=== PATIENT | male | born 1960 | race Caucasian/White ===

== ENCOUNTER 2024-08-27 14:40 | Emergency (ER) | payer OTHER ==
[2024-08-27] MEDS ORDERED: Ipratropium/Albuterol 3 ML NEB ONE (15:01)
[2024-08-27] MEDS ORDERED: Aspirin Chewable 81 MG TAB ONE (15:01)
[2024-08-27] MEDS ORDERED: methylPREDNISolone Sod Succ/PF 125 MG/2 ML VIAL ONE (15:01)
[2024-08-27 15:16] LABS: Eosinophils 3 % (0-10); Hematocrit 57.5 % (42.0-52.0); Hemoglobin 17.9 g/dL (14.0-18.0); Lymphocytes 16 % (21-51); MDiff Complete? YES; Mean Corpuscular HGB CONC 31.1 g/dL (32.0-36.0); Mean Corpuscular Hemoglobin 32.5 pg (27.0-31.0); Mean Platelet Volume 8.7 fL (7.4-10.4); Monocytes 15 % (0-10); Neutrophil 65 % (42-75); Platelet Count 204 10x3/uL (130-400); RBC Distribution Width 13.2 % (11.5-14.5); Red Blood Cell (RBC) Count 5.51 mill/uL (4.70-6.10); White Blood Cell (WBC) Count 9.3 10x3/uL (4.8-10.8)
[2024-08-27 15:20] LABS: Base Excess-Venous -3.6 mmol/L (-2.0 to 3.0); Bicarbonate (HCO3v) 30.7 mmol/L (22.0-28.0); vO2 Saturation-calc 41.3 % (60.0-85.0)
[2024-08-27 15:22] LABS: CO2 Tension (PvCO2) 96.1 mmHg (42.0-51.0); Calcium, Ionized 1.12 mmol/L (1.15-1.33); Chloride 85 mmol/L (98-107); Hemoglobin - Calc 21.4 g/dL (14.0-18.0); Potassium 5.6 mmol/L (3.5-5.1); Sodium 130 mmol/L (138-145); T. Carbon Dioxide 33.6 mmol/L (22.0-28.0)
[2024-08-27 15:35] LABS: ALT (SGPT) 137 U/L (8-55); AST (SGOT) 154 U/L (5-34); Albumin 3.6 g/dL (3.4-4.8); Alkaline Phosphatase 123 U/L (40-110); Anion Gap 24 mmol/L (10-20); BUN (Urea Nitrogen) 49 mg/dL (8.4-25.7); Bilirubin, Total 0.8 mg/dL (0.2-1.2); Calc. Creatinine Clearance 0 mL/min (70-130); Calcium 9.2 mg/dL (7.8-10.44); Carbon Dioxide 26 mmol/L (23-31); Chloride 86 mmol/L (98-107); Estimated GFR 31; Globulin 3.2 g/dL (2.4-3.5); Glucose 135 mg/dL (80-115); Lipase 26 U/L (8-78); Potassium 5.6 mmol/L (3.5-5.1); Protein, Total 6.8 g/dL (5.8-8.1); Sodium 130 mmol/L (136-145)
[2024-08-27] MEDS ORDERED: Furosemide 40 MG (4 mL) VIAL ONE (15:38)
[2024-08-27] MEDS ORDERED: Sodium Bicarb 50 MEQ/50 ML Abboject 8.4% SYRINGE ONE (15:38)
[2024-08-27 15:46] LABS: Troponin I 0.957 ng/mL (< 0.028)
[2024-08-27] MEDS ORDERED: fentaNYL 50 mcg/mL 1 mL Vial ONE (15:48)
[2024-08-27] MEDS ORDERED: Etomidate 40 MG (20 mL) VIAL ONE (15:49)
[2024-08-27] MEDS ORDERED: Enoxaparin 100 MG (1 mL) SYRINGE ONE (16:10)
[2024-08-27] MEDS ORDERED: Sodium Chloride 0.9% 100 ML ONE (16:10)
[2024-08-27] MEDS ORDERED: cefTRIAXone (ROCEPHIN) 2 GM VIAL ONE (16:10)
[2024-08-27 16:19] LABS: Bilirubin Moderate (Negative); Blood, Urine Trace (Negative); Clarity Clear (Clear); Glucose, Urine (Dipstick) Negative (Negative); Ketone, Urine Trace mg/dL (Negative); Leukocyte Negative (Negative); Nitrite Negative (Negative); Protein, Urine (Dipstick) > or equal to 300 mg/dL (Neg-Trace); pH, Urine 5.5 (5.0-9.0)
[2024-08-27 16:23] LABS: CAUTI Indications for Culture Alt mental st,lethar; RBC/HPF 0-3 HPF (0-3); Specific Gravity, Urine 1.031 (1.002-1.036); Squamous Epithelial 0-3 HPF (0-3); WBC/HPF 0-3 HPF (0-3)
[2024-08-27 16:24] LABS: Bacteria/HPF None Seen HPF (None Seen); Urine Culture Reflex No No
[2024-08-27 16:28] LABS: Amphetamine Not Detected (NotDetected); Barbiturates Screen Not Detected (NotDetected); Benzodiazepine Screen Not Detected (NotDetected); Cocaine Metabolite Screen Not Detected (NotDetected); Methadone Not Detected (NotDetected); Methamphetamine Not Detected (NotDetected); Opiate Screen Not Detected (NotDetected); Oxycodone Screen Not Detected (NotDetected); Phencyclidine (PCP) Not Detected (NotDetected); THC/Cannabinoid Screen Not Detected (NotDetected); Tricyclic Screen Not Detected (NotDetected)
== END 2024-08-27 16:52 | disposition short-term general hospital (02) ==
LOC: BURERS 14:40
DX: I21.4 Non-ST elevation (NSTEMI) myocardial infarction (principal); J96.90 Respiratory failure, unspecified, unspecified whether with hypoxia or hypercapnia; N28.9 Disorder of kidney and ureter, unspecified; I25.10 Atherosclerotic heart disease of native coronary artery without angina pectoris; J44.1 Chronic obstructive pulmonary disease with (acute) exacerbation; I11.0 Hypertensive heart disease with heart failure; I50.9 Heart failure, unspecified; F17.210 Nicotine dependence, cigarettes, uncomplicated
CPT/HCPCS: 31500; 36415; 71045; 80053; 80306; 82330; 82803; 83605; 83690; 83880; 84443; 84484; 85025; 85379; 93005; 94640; 94660; 94760; 96372; 96374; 96375; J0696; J1650; J1940; J2919; J3010; J7620